=== PATIENT | male | born 1990 | race Caucasian/White ===

== ENCOUNTER 2024-03-01 16:22 | Emergency (ER) | payer OTHER ==
[~2024-03-01] VITALS: Ht 162.6 cm; Wt 73.0 kg
[2024-03-01 16:37] VITALS: BP 119/82; TEMP 98.3; O2SAT 99
[2024-03-01] MEDS: IBUPROFEN 600 MG TABLET PO ONE (17:19)
== END 2024-03-01 19:30 | disposition home or self-care (01) ==
LOC: ER 16:25
DX: M53.3 Sacrococcygeal disorders, not elsewhere classified (principal); Z85.841 Personal history of malignant neoplasm of brain; V43.52XA Car driver injured in collision with other type car in traffic accident, initial encounter; Y93.89 Activity, other specified; Y92.89 Other specified places as the place of occurrence of the external cause; Y99.8 Other external cause status
CPT/HCPCS: 72220-TC